=== PATIENT | female | born 1970 | race Hispanic/Latino ===

== ENCOUNTER 2016-07-12 21:26 | Emergency (ER) | payer OTHER ==
[~2016-07-12] VITALS: Ht 154.9 cm; Wt 74.8 kg
[~2016-07-12 21:26] MED LIST: AMOXIL 875 MG875 MG PO; BENZONATATE200 MG PO; LOMOTIL 0.025 M1 TAB PO; VICODIN5-300 PO; ZOFRAN ODT4 MG PO
[2016-07-12 21:58] LABS: ABSOLUTE BASOPHIL COUNT 0.1 /CUMM (0.0-0.2); ABSOLUTE EOSINOPHIL COUNT 0.3 /CUMM (0.0-0.7); ABSOLUTE GRANULOCYTE CT 8.3 /CUMM (1.4-6.5); ABSOLUTE MONOCYTE COUNT 0.8 /CUMM (0.10-0.60); BASOPHIL % 0.5 % (0.0-2.0); EOSINOPHIL % 2.4 % (0-5); GRANULOCYTE % 66.8 % (42.2-75.2); HEMATOCRIT 40.6 % (37-47); MEAN CORPUSCULAR HGB CONC 32.8 G/DL (33.0-37.0); MEAN CORPUSCULAR VOLUME 82.3 FL (81.0-99.0); MEAN PLATELET VOLUME 8.3 FL (7.4-10.4); PLATELET COUNT 272 /CUMM (130-400); RBC DISTRIBUTION WIDTH 13.6 % (11.5-14.5); RED BLOOD CELL CT 4.94 /CUMM (4.20-5.40); WHITE BLOOD CELL COUNT 12.4 /CUMM (4.8-10.8)
--- NOTE | 2016-07-12 22:14 | ED GI/GU/ABDOMINAL COMPLAINT ---
History of Present Illness General Chief Complaint: Abdominal Pain/Flank Pain Stated Complaint: R SIDED SEVERE ABD PAIN X 2HRS Source: patient Exam Limitations: no limitations Vital Signs & Intake/Output Vital Signs & Intake/Output Vital Signs Date Time Temp Pulse Resp B/P Pulse O2 O2 Flow FiO2 Ox Delivery Rate 07/13 0114 88 22 142/78 98 07/12 2339 97 18 154/71 100 Room Air 07/12 2143 96.0 99 18 158/90 99 Room Air ED Intake and Output 07/13 0000 07/12 1200 Intake Total 1000 Output Total Balance 1000 Intake, IV 1000 Patient 165 lb Weight Allergies Coded Allergies: morphine (RASH 07/13/16) Reconcile Medications Cyclobenzaprine HCl (Unknown Strength) TABLET (Unknown Dose) PO DAILY BACK PAIN (Reported) Ibuprofen 800 MG TABLET 1 TAB PO TID PAIN Meloxicam (Unknown Strength) TABLET (Unknown Dose) PO DAILY BACK PAIN ( Reported) Oxycodone HCl/Acetaminophen (Percocet 5-325 MG Tablet) 5 MG-325 MG TABLET 1 TAB PO BID PAIN Tamsulosin HCl (Flomax) 0.4 MG CAP.ER.24H 1 CAP PO DAILY KIDNEY STONE Triage Note: PT TO TRIAGE WITH C/O RLQ ABD PAIN 10/10 STARTED AT 7PM, NAUSEA, VOMITING x2, DENIES DIARRHEA. PT AFEBRILE, VSS. PT RESTLESS IN TRIAGE, CAN'T SIT DOWN DUE TO SEVERE PAIN. Triage Nurses Notes Reviewed? yes ? N Is pt currently ? No Onset: Abrupt Duration: hour(s):, constant, continues in ED Timing: recent history Quality/Severity: moderate, sharpness, severe Location: right lower quadrant Radiation: no radiation No Modifying Factors: none HPI: 46-year-old female comes into emergency room with complaints of right-sided abdominal pain. Symptoms been going on since later tonight. Sudden onset. Decreased appetite. Nausea. Nothing seems to make the symptoms better or worse. Denies any prior history of this. Denies any other associated symptoms. (KIMBERLY VILLA) Past History Travel History Traveled to [place] past 21 day No Medical History Any Pertinent Medical History? see below for history Musculoskeletal: L5 FUSION Surgical History Surgical History: non-contributory Psychosocial History What is your primary language Albanian Tobacco Use: Never used Family History Hx Contributory? No (KIMBERLY VILLA) Review of Systems Review of Systems Constitutional: Reports: see HPI. EENTM: Reports: no symptoms. Respiratory: Reports: no symptoms. Cardiovascular: Reports: no symptoms. GI: Reports: see HPI. Genitourinary: Reports: no symptoms. Musculoskeletal: Reports: no symptoms. Skin: Reports: no symptoms. Neurological/Psychological: Reports: no symptoms. Hematologic/Endocrine: Reports: no symptoms. Immunologic/Allergic: Reports: no symptoms. All Other Systems: Reviewed and Negative (KIMBERLY VILLA) Physical Exam Physical Exam General Appearance: well developed/nourished, no apparent distress, alert Head: atraumatic, normal appearance Eyes: Bilateral: normal appearance, EOMI. Ears, Nose, Throat, Mouth: hearing grossly normal, moist mucous membrane Neck: normal inspection, full range of motion Respiratory: normal breath sounds, no respiratory distress Cardiovascular: regular rate/rhythm Gastrointestinal: soft, non-tender Back: normal inspection Extremities: normal range of motion Neurologic/Psych: awake, alert, oriented x 3, normal gait, normal mood/affect Skin: intact, normal color Core Measures ACS in differential dx? No Severe Sepsis Present: No Septic Shock Present: No (KIMBERLY VILLA) Progress Differential Diagnosis: appendicitis, biliary colic, bowel obstruction, cholecystitis, diverticulitis, ectopic , gastritis, hepatitis, hernia, ischemic bowel, kidney stone, ovarian cyst, ovarian torsion, pancreatitis, PID/ cervicitis, peptic ulcer, PUD/GERD, perforated viscous, SBO, threatened AB, UTI/ pyelo Plan of Care: Orders Procedure Date/time Status URINALYSIS 07/13 2131 Complete LIPASE 07/13 2131 Complete HEPATIC FUNCTION PANEL 07/13 2131 Complete HUMAN BETA HCG SCREEN 07/13 2131 Complete CBC WITHOUT DIFFERENTIAL 07/13 2131 Complete BASIC METABOLIC PANEL 07/13 2131 Complete AMYLASE 07/13 2131 Complete Laboratory Tests 07/12/162233: Urine Color YEL, Urine Clarity CLEAR, Urine pH 6.0, Ur Specific [place] 1.025, Urine Protein TRACE H, Urine Ketones TRACE H, Urine Nitrite NEG, Urine Bilirubin NEG, Urine Urobilinogen 0.2, Ur Leukocyte Esterase NEG, Ur Microscopic SEDIMENT EXAMINED, Urine RBC 25-50 H, Urine WBC 1-3 H, Ur Epithelial Cells MANY H, Urine Bacteria MANY H, Urine Hemoglobin MOD H, Urine Glucose NEG 07/12/162151: Anion Gap 16, Estimated GFR > 60, BUN/Creatinine Ratio 28.9 H, Glucose 118 H, Calcium 10.1, Total Bilirubin 0.3, Direct Bilirubin 0.2, AST 17, ALT 34, Alkaline Phosphatase 79, Total Protein 7.8, Albumin 4.5, Amylase 64, Lipase 94, Total Beta HCG NEGATIVE, CBC w Diff NO MAN DIFF REQ, RBC 4.94, MCV 82.3, MCH 27.0, RDW 13.6, MPV 8.3, Gran % 66.8, Lymphocytes % 24.0, Monocytes % 6.3, Eosinophils % 2.4, Basophils % 0.5, Absolute Granulocytes 8.3 H, Absolute Lymphocytes 3.0, Absolute Monocytes 0.8 H, Absolute Eosinophils 0.3, Absolute Basophils 0.1, PUBS MCHC 32.8 L Diagnostic Imaging: Viewed by Me: CT Scan. Discussed w/RAD: CT Scan. Radiology Impression: SERVICE DATE: 07/12/16 EXAM TYPE: CAT - CT ABD & PELVIS W IV CONTRAST EXAMINATION: CT ABDOMEN AND PELVIS WITH CONTRAST CLINICAL INFORMATION: Right lower quadrant pain COMPARISON: None TECHNIQUE: Multidetector volumetric imaging was performed of the abdomen and pelvis before and after the IV administration of 95 mL of Optiray 320 intravenous contrast. Sagittal and coronal reformatted images were obtained on the technologist's workstation. DLP: 397.19 mGy-cm FINDINGS: LUNG BASES: The visualized lung bases are unremarkable. LIVER, GALLBLADDER, AND BILIARY TREE: The liver is normal in size, shape, and attenuation. No focal hepatic lesion or biliary ductal dilatation is present. The gallbladder is unremarkable with no evidence of radiopaque gallstones, gallbladder wall thickening, or obvious pericholecystic inflammatory changes. PANCREAS: Unremarkable. SPLEEN: Unremarkable. ADRENAL GLANDS: Unremarkable. KIDNEYS AND URETERS: There is a 5-6 mm distal right ureter stone, causing moderate 2 severe right sided hydroureteronephrosis and moderate perinephric fat stranding. The nephrogram of the right kidney is lower than the normal left kidney, representing obstructive uropathy. The right ureter distal to this stone is decompressed. The urinary bladder is empty. The left kidney is normal in size and demonstrates normal nephrogram. No left-sided hydronephrosis or hydroureter. No left-sided urinary is found. GASTROINTESTINAL TRACT: The the stomach, duodenum small and large bowel are unremarkable. The appendix is not seen, however there are no inflammatory changes in the expected position of the appendix to suggest acute appendicitis. ABDOMINAL WALL: No significant hernia is appreciated. LYMPH NODES: Normal. VASCULAR: Unremarkable. PELVIC VISCERA: The uterus and adnexa are unremarkable. A dominant right ovarian follicle is present. OSSEOUS STRUCTURES: Postsurgical changes at L5-S1 level with pedicular screws and intervertebral disc spacer noted. IMPRESSION: 1. A 5-6 mm obstructing distal right ureter stone, causing moderate to severe right-sided hydroureteronephrosis and right perinephric stranding. 2. Postsurgical changes at L5-S1 level. DICTATED BY: LUIS MARTÍNEZ MD DATE/TIME DICTATED:07/12/162325 INSURANCE EXAMINER:JAZMINE DATE/TIME TRANSCRIBED:07/12/162325 CONFIDENTIAL, DO NOT COPY WITHOUT APPROPRIATE AUTHORIZATION. Initial ED EKG: none (ERLIN CUETO,KIMBERLY) Departure Departure Disposition: HOME OR SELF CARE Condition: Stable Clinical Impression Primary Impression: Kidney stone on right side Referrals: PATIENT HAS NO PRIMARY CARE DR (PCP/Family) SANDEE OLSON MD Additional Instructions: Take Percocet and ibuprofen and Flomax as prescribed. Call the urologist to follow up tomorrow. Return if any concerns worsening symptoms. Please go over all results of today's visit with your primary care doctor. Contact your primary care doctor to let them know you were here in the emergency room. There may be nonspecific findings which may not be related to your visit today here in the emergency room but may require further evaluation and chronic monitoring by your primary care doctor. If you had a laceration today the chance of foreign body always remains. You should follow-up with your primary care doctor for recheck in 3-5 days for a wound check. If you had an x-ray done there is a chance that a fracture could have been missed on initial read and you should follow-up with your primary care doctor for repeat x-rays if symptoms persist. If your blood pressure was elevated here in the emergency room please have rechecked by her primary care doctor within the next 48 hours by your primary care doctor. If you were prescribed a narcotic here in the emergency room or any type of controlled substances you're not allowed to drive while taking this medication or operate any type of heavy machinery. Narcotics can make you feel lightheaded dizziness nausea and can cause constipation. You may need to picker feeder a stool softener. Thank you for choosing [facility] emergency room. Please return to the emergency room immediately if you have any other concerns worsening of symptoms. Departure Forms: Customer Survey General Discharge Information Comments Pain is well controlled. Patient will follow up with urology. Return if any concerns worsening symptoms. Patient understands and agrees with plan of care. Patient reevaluated multiple times. Patient understands and agrees with plan of care. Patient feels significantly better. (KIMBERLY VILLA) Departure Prescriptions: Current Visit Scripts Oxycodone HCl/Acetaminophen (Percocet 5-325 MG Tablet) 1 TAB PO BID #15 TAB Ibuprofen 1 TAB PO TID #30 TAB Tamsulosin HCl (Flomax) 1 CAP PO DAILY #7 CAP PA/TANK SETTER HELPER Co-Sign Statement Statement: ED Attending supervision documentation- [] I saw and evaluated the patient. I have also reviewed all the pertinent lab results and diagnostic results. I agree with the findings and the plan of care as documented in the PA's/TANK SETTER HELPER's documentation. [X] I have reviewed the ED Record and agree with the PA's/TANK SETTER HELPER's documentation. [] Additions or exceptions (if any) to the PAs/TANK SETTER HELPER's note and plan are summarized below: [] (MIKAEL JEWELL,MOJGAN Whitaker)
[2016-07-12] MEDS ORDERED: MELOXICAM7.5 M1 PO (22:24)
[2016-07-12] MEDS ORDERED: CYCLOBENZAPRINE10 M1 PO (22:26)
--- NOTE | 2016-07-12 23:39 | CT SCAN REPORT ---
EXAMINATION: CT ABDOMEN AND PELVIS WITH CONTRAST CLINICAL INFORMATION: Right lower quadrant pain COMPARISON: None TECHNIQUE: Multidetector volumetric imaging was performed of the abdomen and pelvis before and after the IV administration of 95 mL of Optiray 320 intravenous contrast. Sagittal and coronal reformatted images were obtained on the technologist's workstation. DLP: 397.19 mGy-cm FINDINGS: LUNG BASES: The visualized lung bases are unremarkable. LIVER, GALLBLADDER, AND BILIARY TREE: The liver is normal in size, shape, and attenuation. No focal hepatic lesion or biliary ductal dilatation is present. The gallbladder is unremarkable with no evidence of radiopaque gallstones, gallbladder wall thickening, or obvious pericholecystic inflammatory changes. PANCREAS: Unremarkable. SPLEEN: Unremarkable. ADRENAL GLANDS: Unremarkable. KIDNEYS AND URETERS: There is a 5-6 mm distal right ureter stone, causing moderate 2 severe right sided hydroureteronephrosis and moderate perinephric fat stranding. The nephrogram of the right kidney is lower than the normal left kidney, representing obstructive uropathy. The right ureter distal to this stone is decompressed. The urinary bladder is empty. The left kidney is normal in size and demonstrates normal nephrogram. No left-sided hydronephrosis or hydroureter. No left-sided urinary is found. GASTROINTESTINAL TRACT: The the stomach, duodenum small and large bowel are unremarkable. The appendix is not seen, however there are no inflammatory changes in the expected position of the appendix to suggest acute appendicitis. ABDOMINAL WALL: No significant hernia is appreciated. LYMPH NODES: Normal. VASCULAR: Unremarkable. PELVIC VISCERA: The uterus and adnexa are unremarkable. A dominant right ovarian follicle is present. OSSEOUS STRUCTURES: Postsurgical changes at L5-S1 level with pedicular screws and intervertebral disc spacer noted. IMPRESSION: 1. A 5-6 mm obstructing distal right ureter stone, causing moderate to severe right-sided hydroureteronephrosis and right perinephric stranding. 2. Postsurgical changes at L5-S1 level.
[2016-07-13] MEDS ORDERED: IBUPROFEN800 M1 PO (00:35)
[2016-07-13] MEDS ORDERED: FLOMAX0.4 M1 PO (00:35)
[2016-07-13] MEDS ORDERED: PERCOCET 5-3251 EACH PO (00:35)
[2016-07-13 01:14] VITALS: BP 142/78
--- NOTE | 2016-07-13 14:43 | Cons- Urology ---
General Information and HPI Consulting Request Date of Consult: 07/12/16 Requested By: do olga murphy-emergency room Reason for Consult: severe right renal colic for 2 days-sudden onset Source of Information: patient, old records Exam Limitations: no limitations History of Present Illness: 46 yr old with back problems noted severe right colic for 2 days/ seen in er and ct with hydro and right 6mm UVJ stone. no fever, no chill, no n/v and tolerated po pain meds. will try to pass stone but scheduled for future ESWL if not passed or symptoms worse. Allergies/Medications Allergies: Coded Allergies: morphine (RASH 07/13/16) Home Med List: Cyclobenzaprine HCl (Unknown Strength) TABLET (Unknown Dose) PO DAILY BACK PAIN (Reported) Ibuprofen 800 MG TABLET 1 TAB PO TID PAIN Meloxicam (Unknown Strength) TABLET (Unknown Dose) PO DAILY BACK PAIN ( Reported) Oxycodone HCl/Acetaminophen (Percocet 5-325 MG Tablet) 5 MG-325 MG TABLET 1 TAB PO BID PAIN Tamsulosin HCl (Flomax) 0.4 MG CAP.ER.24H 1 CAP PO DAILY KIDNEY STONE Current Medications: Current Medications Sig/Osvaldo Start time Last Medication Dose Route Stop Time Status Admin Diphenhydramine HCl 25 MG ONCE ONE 07/12 2300 DC 07/12 IV 07/12 2301 2253 Diphenhydramine HCl 0 .STK-MED ONE 07/12 2253 DC .ROUTE Hydromorphone HCl 0 .STK-MED ONE 07/12 2352 DC .ROUTE Hydromorphone HCl 1 MG ONCE ONE 07/12 2345 DC 07/12 IV 07/12 2346 2359 Ketorolac 0 .STK-MED ONE 07/13 0003 DC Tromethamine .ROUTE Ketorolac 30 MG ONCE ONE 07/12 2345 DC 07/13 Tromethamine IV 07/12 2346 0002 Morphine Sulfate 4 MG ONCE ONE 07/12 2245 DC 07/12 IV 07/12 2245 223 Morphine Sulfate 0 .STK-MED ONE 07/12 223 DC .ROUTE Ondansetron HCl 0 .STK-MED ONE 07/12 2250 DC .ROUTE Ondansetron HCl 4 MG ONCE ONE 07/12 2245 DC 07/12 IV 07/12 2246 225 Sodium Chloride 1,000 ML BOLUS ONE 07/13 2345 DCD 07/13 IV 07/14 0044 0002 Sodium Chloride 1,000 ML BOLUS ONE 07/12 2245 DC 07/12 IV 07/12 2344 2253 Past History Medical History Blood Transfusion Hx: No Musculoskeletal: L5 FUSION Surgical History Pertinent Surgical History: non-contributory Employment History Retired? no Review of Systems Review of Systems Constitutional: Reports: see HPI. EENTM: Denies: no symptoms. Cardiovascular: Denies: no symptoms. Respiratory: Denies: no symptoms. GI: Reports: abdominal pain, bloating, distention. Genitourinary: Denies: no symptoms. Musculoskeletal: Reports: muscle pain, muscle stiffness. Skin: Denies: no symptoms. Exam & Diagnostic Data Vital Signs and I&O Vital Signs Date Time Temp Pulse Resp B/P Pulse O2 O2 Flow FiO2 Ox Delivery Rate 07/13 0114 88 22 142/78 98 07/12 2339 97 18 154/71 100 Room Air 07/12 2143 96.0 99 18 158/90 99 Room Air Intake & Output 07/13 1600 07/13 0800 07/13 0000 07/12 1600 07/12 0800 07/12 0000 Intake Total 1000 Output Total Balance 1000 Intake, IV 1000 Patient 165 lb Weight Physical Exam General Appearance: well developed/nourished, mild distress Head: atraumatic Eyes: Bilateral: normal appearance. Respiratory: normal breath sounds Cardiovascular: regular rate/rhythm Gastrointestinal: normal bowel sounds Back: CVA tenderness (R) Extremities: normal inspection Skin: intact, normal color, warm/dry Last 24 Hours of Labs: Laboratory Tests 07/12 07/12 2234 2152 Chemistry Sodium (137 - 145 mmol/L) 140 Potassium (3.5 - 5.1 mmol/L) 4.0 Chloride (98 - 107 mmol/L) 100 Carbon Dioxide (22 - 30 mmol/L) 24 Anion Gap (5 - 16) 16 BUN (7 - 17 mg/dL) 26 H Creatinine (0.5 - 1.0 mg/dL) 0.9 Estimated GFR (>60 ml/min) > 60 BUN/Creatinine Ratio (7 - 25 %) 28.9 H Glucose (65 - 99 mg/dL) 118 H Calcium (8.4 - 10.2 mg/dL) 10.1 Total Bilirubin (0.2 - 1.3 mg/dL) 0.3 Direct Bilirubin (< 0.4 mg/dL) 0.2 AST (14 - 36 U/L) 17 ALT (9 - 52 U/L) 34 Alkaline Phosphatase (<127 U/L) 79 Total Protein (6.3 - 8.2 g/dL) 7.8 Albumin (3.5 - 5.0 g/dL) 4.5 Amylase (30 - 110 U/L) 64 Lipase (23 - 300 U/L) 94 Total Beta HCG (NEGATIVE) NEGATIVE Hematology CBC w Diff NO MAN DIFF REQ WBC (4.8 - 10.8 /CUMM) 12.4 H RBC (4.20 - 5.40 /CUMM) 4.94 Hgb (12.0 - 16.0 G/DL) 13.4 Hct (37 - 47 %) 40.6 MCV (81.0 - 99.0 FL) 82.3 MCH (27.0 - 31.0 PG) 27.0 RDW (11.5 - 14.5 %) 13.6 Plt Count (130 - 400 /CUMM) 272 MPV (7.4 - 10.4 FL) 8.3 Gran % (42.2 - 75.2 %) 66.8 Lymphocytes % (20.5 - 51.1 %) 24.0 Monocytes % (1.7 - 9.3 %) 6.3 Eosinophils % (0 - 5 %) 2.4 Basophils % (0.0 - 2.0 %) 0.5 Absolute Granulocytes (1.4 - 6.5 /CUMM) 8.3 H Absolute Lymphocytes (1.2 - 3.4 /CUMM) 3.0 Absolute Monocytes (0.10 - 0.60 /CUMM) 0.8 H Absolute Eosinophils (0.0 - 0.7 /CUMM) 0.3 Absolute Basophils (0.0 - 0.2 /CUMM) 0.1 PUBS MCHC (33.0 - 37.0 G/DL) 32.8 L Urines Urine Color (YEL,AMB,STR) YEL Urine Clarity (CLEAR) CLEAR Urine pH (5.0 - 8.0) 6.0 Ur Specific [place] (1.001 - 1.035) 1.025 Urine Protein (NEG,<30 MG/DL) TRACE H Urine Ketones (NEG) TRACE H Urine Nitrite (NEG) NEG Urine Bilirubin (NEG) NEG Urine Urobilinogen (0.1 - 1.0 EU/dl) 0.2 Ur Leukocyte Esterase (NEG) NEG Ur Microscopic SEDIMENT EXAMINED Urine RBC (0 - 5 /HPF) 25-50 H Urine WBC (0 - 2 /HPF) 1-3 H Ur Epithelial Cells (NONE,FEW) MANY H Urine Bacteria (NEG/NONE) MANY H Urine Hemoglobin (NEG) MOD H Urine Glucose (N MG/DL) NEG Imaging Results: PATIENT: RONALD CHANEY PRESENT AGE: 46 PATIENT ACCOUNT NO: [id number] : 70 LOCATION: [facility] ORDERING PHYSICIAN: KIMBERLY CUETO SERVICE DATE: 07/12/16 EXAM TYPE: CAT - CT ABD & PELVIS W IV CONTRAST EXAMINATION: CT ABDOMEN AND PELVIS WITH CONTRAST CLINICAL INFORMATION: Right lower quadrant pain COMPARISON: None TECHNIQUE: Multidetector volumetric imaging was performed of the abdomen and pelvis before and after the IV administration of 95 mL of Optiray 320 intravenous contrast. Sagittal and coronal reformatted images were obtained on the technologist's workstation. DLP: 397.19 mGy-cm FINDINGS: LUNG BASES: The visualized lung bases are unremarkable. LIVER, GALLBLADDER, AND BILIARY TREE: The liver is normal in size, shape, and attenuation. No focal hepatic lesion or biliary ductal dilatation is present. The gallbladder is unremarkable with no evidence of radiopaque gallstones, gallbladder wall thickening, or obvious pericholecystic inflammatory changes. PANCREAS: Unremarkable. SPLEEN: Unremarkable. ADRENAL GLANDS: Unremarkable. KIDNEYS AND URETERS: There is a 5-6 mm distal right ureter stone, causing moderate 2 severe right sided hydroureteronephrosis and moderate perinephric fat stranding. The nephrogram of the right kidney is lower than the normal left kidney, representing obstructive uropathy. The right ureter distal to this stone is decompressed. The urinary bladder is empty. The left kidney is normal in size and demonstrates normal nephrogram. No left-sided hydronephrosis or hydroureter. No left-sided urinary is found. GASTROINTESTINAL TRACT: The the stomach, duodenum small and large bowel are unremarkable. The appendix is not seen, however there are no inflammatory changes in the expected position of the appendix to suggest acute appendicitis. ABDOMINAL WALL: No significant hernia is appreciated. LYMPH NODES: Normal. VASCULAR: Unremarkable. PELVIC VISCERA: The uterus and adnexa are unremarkable. A dominant right ovarian follicle is present. OSSEOUS STRUCTURES: Postsurgical changes at L5-S1 level with pedicular screws and intervertebral disc spacer noted. IMPRESSION: 1. A 5-6 mm obstructing distal right ureter stone, causing moderate to severe right-sided hydroureteronephrosis and right perinephric stranding. 2. Postsurgical changes at L5-S1 level. Assessment/Plan Assessment/Plan severe right coli: dc on meds for now-will schedule for eswl if not passed/worse over next few weeks. Copies To: SANDEE OLSON MD Consult Acknowledgment - Thank you for your consult request. Attending MD Review Statement Attending Statement Attending MD Statement: examined this patient, discuss w/resident/PA/ACID PURIFICATION EQUIPMENT OPERATOR Attending Assessment/Plan: pt with 6mm rigth UVJ stone: will dc home on meds totry and pass on own. f/u for ESWL in 2 weeks if not passed=sooner if symptoms worse.
== END 2016-07-13 01:15 ==
LOC: ERH 21:26
PROVIDERS: Pediatrics
DX: N20.0 Calculus of kidney (principal)
CPT/HCPCS: 74177; 81001; 96361; 96374; 96375; J1200; J1885; J2405

== ENCOUNTER → 2016-07-13 | Day surgery (SDC) | payer OTHER ==
[~2016-07-13] VITALS: Ht 154.9 cm; Wt 74.8 kg
[~2016-07-13] MED LIST changes: +CIPROFLOXACIN500 M2 PO; +CYCLOBENZAPRINE10 M1 PO; +FLOMAX0.4 M1 PO; +IBUPROFEN800 M1 PO; +MELOXICAM7.5 M1 PO; +PERCOCET 5-3251 EACH PO
--- NOTE | 2016-07-14 07:52 | Operative Report ---
Operative/Inv Procedure Report Surgery Date: 07/13/16 Name of Procedure: CYSTOSCOPY: RIGHT RETROGRADE PYELOGRAM. RIGHT STENT PLACEMENT. FLUOROSCOPY. Pre-Operative Diagnosis: RIGHT 6MM OBSTRUCTING URETER STONE WITH HYDRO., AND COLIC Post-Operative Diagnosis: SAME Estimated Blood Loss: scant Surgeon/Patient Intake Coordinator: SANDEE OLSON MD Anesthesia: moderate sedation Drains: NONE Specimens: NONE Complications: NONE Operative/Procedure Note Note: The patient was taken to the operating room and placed on the OR table in supine position. Timeout was performed, with the patient awake, in order to confirm identity, procedure, antibiotics, anesthesia, and other pertinent information. After adequate anesthesia and antibiotics, the patient was placed in lithotomy stirrups draped and prepped in the usual surgical fashion. A 22 Occitan cystoscope sheath with 30 angle lens was inserted into the urethra without difficulty. Upon entering the bladder, the bladder was noted to be free of tumor, free of stone, with clear reflux from the left ureteral orifice, and no efflux from the right. Under direct visualization the right ureter orifice was intubated with a 5 Occitan open-ended ureter catheter. A retrograde pyelogram, with fluoroscopy was performed. The distal ureter filling defect consistent with stone was clearly visible, with proximal hydroureter, and hydronephrosis. The open-ended stent was then removed, followed by insertion of a 0.035 Glidewire into the right ureteral orifice. The Glidewire was advanced into the right renal pelvis, bypassing the stone, with good placement confirmed by fluoroscopy. Over the Glidewire, a 6 x 22 Bard inlay ureteral double-J stent was advanced. With the proximal coil in the right renal pelvis, and the distal coil in the bladder, the Glidewire was removed. The stent remained in proper place, both cystoscopically, and fluoroscopically. The bladder was then drained , and the cystoscope was removed. The patient tolerated procedure well and will follow-up as outpatient for further plan/procedures. Findings: 6MM RIGHT DISTAL URETER STONE CLEARLY VISIBLE ON C-ARM. 6X22 INSERTED WITHOUT SIGNIFICANT DIFFICULTY. RIGHT HYDRO. EVIDENT ON RETROGRADE. Discharge Disposition: Same Day Admissions Additional Comments: F/U FOR RIGHT ESWL AND STENT REMOVAL IN NEAR FUTURE CC: SANDEE OLSON MD
--- NOTE | 2016-07-14 08:46 | RADIOLOGY REPORT ---
EXAMINATION: XR ABDOMEN CLINICAL INDICATION: Right ureteral calculus and hydroureteronephrosis. COMPARISON: CT of abdomen pelvis from 07/12/2016. TECHNIQUE: Fluoroscopic imaging assistance was provided to the operating room. Fluoroscopy time: 58.8 seconds. Dose: 1.31 rad. Number of saved images: 3. FINDINGS: A few fluoroscopic images of the abdomen/pelvis are saved from the intraoperative urologic procedures performed by Dr. Cody. A right retrograde ureterography examination was performed and right ureteral stent deployed. Please refer to the operative report regarding the specifics of the intraoperative findings and interventions performed. IMPRESSION: Fluoroscopic imaging assistance was provided to the operating room.
== END ==
LOC: STS 07:00
DX: N13.2 Hydronephrosis with renal and ureteral calculous obstruction (principal); K21.9 Gastro-esophageal reflux disease without esophagitis
CPT/HCPCS: 36415; 74000; 81025; C2617; J0131; J2250; J2405; J3010

== ENCOUNTER → 2016-07-16 | Day surgery (SDC) | payer OTHER ==
[~2016-07-16] VITALS: Ht 154.9 cm; Wt 74.8 kg
--- NOTE | 2016-07-16 20:56 | Operative Report ---
Operative/Inv Procedure Report Surgery Date: 07/16/16 Name of Procedure: Right ureter stone ESWL. Cystoscopy right stent removal with fluoroscopy. Pre-Operative Diagnosis: Right ureter stone and right ureter stent intolerance. Post-Operative Diagnosis: Same Estimated Blood Loss: scant Surgeon/Assembly Line Brazer: SANDEE OLSON MD Anesthesia: moderate sedation Specimens: Right stent Complications: None Condition: Improved Operative/Procedure Note Note: The patient was taken to the operating room and placed on the ESWL table in supine position. Time out was performed, with the patient awake, to confirm identity, procedure, laterality, and other pertinent barbara-operative information. After adequate anesthesia, the patient was positioned so that the right flank was placed over the ESWL table cut-out, and overlying the dome of the shockwave generator. C-arm fluroscopy, as well as renal US was used to locate the stone, and evaluate the right kidney. The stone was faintly visible on fluroloscopy at the right mid-ureter. Renal US confirmed mild hydronephrosis with no additional stone seen in the right kidney. The right ureter stone was approximate 7 mm in size, and nearly faintly visible with fluoroscopy. Using the C-Arm fluoroscopy in an A-P, and Oblique view, the position of the ureter stone was optimized at the center of the ESWL crosshairs. At this point, E.S.W.L. was initiated at low power levels x 200 shocks. After noting the patient's tolerance to the shockwaves, the shockwave power level was quickly maximized. At the end of the procedure, the composition of the stone had changed significantly indicating the pulverization of the ureter stone. A total of 3000 shockwaves were delivered to the stone in order to achieve adequate lithotrypsy. Once the ESWL concluded, the pt. was repositioned in frog-legged position, draped and prepped in the usual surgical fashion. A 22 Kiswahili cystoscope sheath with a 30 angle lens was then inserted into the bladder. The bladder was thoroughly and systematically surveyed revealing no tumor no stone. The right orifice was intubated with a double-J stent. The stent was grasped with an alligator forcep, and the cystoscope along with entire stent was removed without difficulty. The patient tolerated the procedures well, was awakened, and taken to recovery in satisfactory condition via stretcher. The pt will be dischared to home with pain meds, antibiotics, diet orders, and intructions to catch fragments with straining the urine. The patient is to have follow-up renal ultrasound and KUB within 1-2 weeks and f/u in the office after discharge. Findings: 7 mm distal ureter stone shattered at 3000 shockwaves. Discharge Disposition: PACU CC: SANDEE OLSON MD
== END ==
LOC: STS 07:00
DX: N13.2 Hydronephrosis with renal and ureteral calculous obstruction (principal); T83.89XA Other specified complication of genitourinary prosthetic devices, implants and grafts, initial encounter
CPT/HCPCS: 81025

== ENCOUNTER 2016-07-17 23:17 | Observation (INO) | payer BC ==
[~2016-07-17] VITALS: Ht 154.9 cm; Wt 73.5 kg
[~2016-07-17 23:17] MED LIST changes: -CIPROFLOXACIN500 M2 PO
--- NOTE | 2016-07-18 00:05 | NUR ---
PT HAD STENT REMOVED AND STONE "BLASTED" ON WEDNESDAY RT SIDE C/O INCREASED PAIN,VOMITING,HEMATURIA
--- NOTE | 2016-07-18 00:33 | ED GENERAL ADULT ---
History of Present Illness General Chief Complaint: General Adult Stated Complaint: SENT REMOVAL SURG YEST, VOMTING, PAINFUL Source: patient Exam Limitations: no limitations Vital Signs & Intake/Output Vital Signs & Intake/Output Vital Signs Date Time Temp Pulse Resp B/P B/P Pulse O2 O2 Flow FiO2 Mean Ox Delivery Rate 07/18 0552 97.6 72 20 122/80 99 07/18 0434 80 18 136/78 100 Room Air 07/18 0344 80 16 133/75 99 Room Air 07/18 0006 98.1 101 18 133/80 99 Room Air Allergies Coded Allergies: morphine (RASH 07/13/16) Reconcile Medications Ciprofloxacin HCl 500 MG TABLET 1 TAB PO BID INFECTION (Reported) Cyclobenzaprine HCl (Unknown Strength) TABLET (Unknown Dose) PO DAILY BACK PAIN (Reported) Ibuprofen 800 MG TABLET 1 TAB PO TID PAIN Meloxicam (Unknown Strength) TABLET (Unknown Dose) PO DAILY BACK PAIN ( Reported) Oxycodone HCl/Acetaminophen (Percocet 5-325 MG Tablet) 5 MG-325 MG TABLET 1 TAB PO TID PRN PAIN (Reported) Tamsulosin HCl (Flomax) 0.4 MG CAP.ER.24H 1 CAP PO DAILY URINE (Reported) Triage Note: PT HAD STENT REMOVED AND STONE "BLASTED" ON WEDNESDAY RT SIDE C/O INCREASED PAIN,VOMITING,HEMATURIA Triage Nurses Notes Reviewed? yes Onset: Abrupt Duration: hour(s): Timing: recent history HPI: 07/18/16 12:38 AM 46-year-old female presents to the emergency department for severe right sided abdominal and flank pain. The patient is status post lithotripsy and ureter stent removal by Dr. Cody earlier today. Since that time she's had multiple episodes of vomiting and severe intractable right sided pain. The onset of the symptoms were abrupt, the duration has been just today, the severity is significant; as her symptoms required to come to the emergency department for care. On physical exam she does have right-sided CVA tenderness and some right lower quadrant abdominal tenderness no rebound or guarding. She denies any possibility of . Past History Travel History Traveled to [place] past 21 day No Medical History Any Pertinent Medical History? see below for history Neurological: NONE EENT: NONE Cardiovascular: NONE Respiratory: NONE Gastrointestinal: NONE Hepatic: NONE Renal: nephrolithiasis Musculoskeletal: L5 FUSION Psychiatric: NONE Endocrine: NONE Blood Disorders: NONE Cancer(s): NONE Surgical History Surgical History: s/p stent removal Psychosocial History What is your primary language Amharic Tobacco Use: Never used Family History Hx Contributory? No Review of Systems Review of Systems Constitutional: Denies: fever. EENTM: Denies: visual changes. Respiratory: Reports: no symptoms. Cardiovascular: Reports: no symptoms. GI: Reports: see HPI. Genitourinary: Reports: see HPI. Musculoskeletal: Reports: no symptoms. Skin: Reports: no symptoms. Neurological/Psychological: Reports: no symptoms. Hematologic/Endocrine: Reports: no symptoms. Immunologic/Allergic: Reports: no symptoms. Physical Exam Physical Exam General Appearance: alert, awake, anxious, severe distress Head: atraumatic, normal appearance Eyes: Bilateral: normal appearance, PERRL, EOMI. Ears, Nose, Throat: normal pharynx, normal ENT inspection Neck: normal inspection, supple Respiratory: normal breath sounds, chest non-tender, no respiratory distress Cardiovascular: regular rate/rhythm Peripheral Pulses: 4+ radial (R), 4+ radial (L) Gastrointestinal: soft, tenderness, right lower quadrant and right flank Back: normal range of motion Extremities: normal inspection, normal range of motion Neurologic/Psych: no motor/sensory deficits, awake, alert, oriented x 3 Skin: intact, normal color, warm/dry Comments: patient with severe tenderess, right cva Core Measures ACS in differential dx? No CVA/TIA Diagnosis: No Severe Sepsis Present: No Septic Shock Present: No Progress Differential Diagnoses I considered the following diagnoses in my evaluation of the patient: [Renal colic, ureteral spasm secondary to stent removal, pyelonephritis] Plan of Care: Orders Procedure Date/time Status CBC WITHOUT DIFFERENTIAL 07/19 599 Active BASIC ELECTROLYTES PLUS BUN&CR 07/19 599 Active Regular Diet 07/18 B Active Vital Signs 07/18 634 Active Teach/Educate 07/18 634 Active Pain Treatment and Response 07/18 634 Active Nutritional Intake, Monitor 07/18 634 Active Isolation 07/18 634 Active Intake & Output 07/18 634 Active Patient Care Conference 07/18 634 Active Activity/Ambulation 07/18 634 Active Patient Data 07/[address] in observation 07/19 431 Active Vital Signs 07/18 043 Active Code Status 07/19 431 Active URINALYSIS 07/18 0041 Complete COMPREHENSIVE METABOLIC PANEL 07/18 40 Complete CBC WITHOUT DIFFERENTIAL 07/[address] in observation 07/18 UNK Active VTE Mechanical Prophylaxis 07/18 UNK Active Vital Signs 07/18 UNK Complete Intake & Output 07/18 UNK Active Current Medications Sig/Osvaldo Start time Last Medication Dose Stop Time Status Admin Heparin Sodium 5,000 UNIT Q8 07/18 1400 AC (Porcine) Tamsulosin HCl 0.8 MG DAILY 07/18 1000 AC (Flomax) Acetaminophen 650 MG Q4-6 PRN PRN 07/18 444 AC (Tylenol) Diphenhydramine HCl 50 MG Q4-6 PRN PRN 07/18 444 AC (Benadryl) Hydromorphone HCl 1 MG Q2-3 HRS NEEDED.. 07/18 444 AC (Dilaudid) Ketorolac 15 MG Q8P PRN 07/18 444 AC 07/18 Tromethamine 0700 (Toradol) Oxycodone/ 1 TAB Q4-6 PRN PRN 07/18 444 AC Acetaminophen (Percocet) Oxycodone/ 2 TAB Q4-6 PRN PRN 07/18 444 AC Acetaminophen (Percocet) Sodium Chloride 1,000 ML Q6H 07/18 444 AC 07/18 (Normal Saline 0.9%) 0514 Laboratory Tests 07/18/16 0220: Urinalysis LIGHT H, Urine Color STRAW, Urine Clarity CLEAR, Urine pH 8.0, Ur Specific [place] 1.015, Urine Protein NEG, Urine Ketones NEG, Urine Nitrite NEG, Urine Bilirubin NEG, Urine Urobilinogen 0.2, Ur Leukocyte Esterase NEG, Ur Microscopic SEDIMENT EXAMINED, Urine RBC 15-25 H, Urine WBC 1-3 H, Ur Epithelial Cells FEW, Urine Bacteria RARE H, Urine Hemoglobin LARGE H, Urine Glucose NEG 07/18/16 0050: Anion Gap 13, Estimated GFR 44 L, BUN/Creatinine Ratio 16.9, Glucose 104 H, Calcium 9.0, Total Bilirubin 0.8, AST 18, ALT 23, Alkaline Phosphatase 78, Total Protein 7.2, Albumin 4.2, Globulin 3.0, Albumin/Globulin Ratio 1.4, CBC w Diff MAN DIFF ORDERED, RBC 4.87, MCV 81.0, MCH 27.8, RDW 13.0, MPV 8.4, Gran % 83.0 H, Lymphocytes % 9.9 L, Monocytes % 5.9, Eosinophils % 1.0, Basophils % 0.2, Absolute Granulocytes 13.4 H, Segmented Neutrophils 88 H, Absolute Lymphocytes 1.6, Lymphocytes 8 L, Monocytes 4, Absolute Monocytes 0.9 H, Absolute Eosinophils 0.2, Absolute Basophils 0, Platelet Estimate ADEQUATE, Normocytic RBCs VERIFIED, Normochromic RBCs VERIFIED, PUBS MCHC 34.3 Initial ED EKG: none Departure Departure Disposition: STILL A PATIENT Condition: Stable Clinical Impression Primary Impression: Renal colic Referrals: PATIENT HAS NO PRIMARY CARE DR (PCP/Family) Departure Forms: Customer Survey General Discharge Information Comments 07/18/16 The patient states that she gets itching from morphine but can tolerate Percocet. PATIENT: RONALD CHANEY PRESENT AGE: 46 PATIENT ACCOUNT NO: [id number] : 70 LOCATION: [facility] ORDERING PHYSICIAN: MADHU GUTIERREZ DO SERVICE DATE: 07/18/16 EXAM TYPE: CAT - CT ABD & PELVIS W/O IV CONTRAS EXAMINATION: CT ABDOMEN AND PELVIS WITHOUT CONTRAST CLINICAL INFORMATION: Severe right flank pain status post lithotripsy. COMPARISON: CT scan of abdomen and pelvis 07/12/2016. TECHNIQUE: Multidetector volumetric imaging was performed from the superior aspect of the liver through the pubic symphysis. Sagittal and coronal reformatted images were obtained on the technologist's workstation. DLP: 407.43 mGy-cm FINDINGS: LUNG BASES: Lung bases are clear. There is no pleural or pericardial effusion. LIVER, GALLBLADDER, AND BILIARY TREE: The unenhanced liver demonstrates homogeneous attenuation and there is no evidence of a discrete hepatic parenchymal mass. The gallbladder is normal. No abnormal intrahepatic or extrahepatic biliary ductal dilatation. PANCREAS: Unremarkable. SPLEEN: Unremarkable. ADRENAL GLANDS: Unremarkable. KIDNEYS AND URETERS: There is moderate to severe right hydroureteronephrosis related to an obstructive 5 mm calculus located within the distal right ureter at the ureterovesicular junction. The right kidney is asymmetrically enlarged and there is stranding within the perinephric fat. No nonobstructing calculi are visualized within the right or left kidney. There is no worrisome mass or calcification along the expected course of the normal left ureter. BLADDER: Unremarkable. GASTROINTESTINAL TRACT: The stomach and small bowel are normal. There is no free intraperitoneal air or fluid. The appendix is not definitively visualized. No worrisome inflammatory changes are visualized at the base of the cecum to suggest acute appendicitis. ABDOMINAL WALL: No significant hernia is appreciated. LYMPH NODES: No pathologically enlarged mesenteric or retroperitoneal lymph nodes. VASCULAR: The unenhanced abdominal aorta and inferior vena cava are unremarkable. PELVIC VISCERA: There is an anteverted uterus. No worrisome adnexal mass. OSSEOUS STRUCTURES: There are chronic changes of a decompressive L5 laminectomy and there is a spinal fusion construct comprised of transpedicular screws extending from L5 to S1. Hardware is grossly intact and there is no evidence of suggest loosening or infection. No worrisome lytic or blastic osseous lesion within the [id number] of this examination. IMPRESSION: There is moderate to severe right hydroureteronephrosis related to an obstructive 5 mm calculus within the distal right ureter at the ureterovesicular junction. DICTATED BY: KAMERON TIWARI MD DATE/TIME DICTATED:07/18/16355 DEMURRAGE CLERK:JAZMINE DATE/TIME TRANSCRIBED:07/18/16355 CONFIDENTIAL, DO NOT COPY WITHOUT APPROPRIATE AUTHORIZATION. <Electronically signed in Other Vendor System> SIGNED BY: KAMERON TIWARI MD 07/18 0406 The patient was treated with multiple doses of IV fluids. IV Dilaudid. IV Zofran. She continued to have severe pain. She was placed in observation under the urology service for further evaluation and care. Observation Note Spoke With: ANURADHA FENG MD Physician Advisor Notified: MADHU GUTIERREZ DO Place Patient In: Non-ED OBS Care Area Rationale for Observation: My rational for observation is as follows [the patient has ongoing pain requiring IV narcotics and IV antiemetics, urology consultation]. Critical Care Note Critical Care Note Critical Care Time: 30-74 min
--- NOTE | 2016-07-18 01:07 | NUR ---
EVALUATED BY DR MATT MEJIA ESTABLISHED N/S 1 L WIDE OPEN MEDICATED WITH ZOFRAN AND DILAUDID
[2016-07-18 01:08] LABS: ABSOLUTE BASOPHIL COUNT 0 /CUMM (0.0-0.2); ABSOLUTE EOSINOPHIL COUNT 0.2 /CUMM (0.0-0.7); ABSOLUTE GRANULOCYTE CT 13.4 /CUMM (1.4-6.5); ABSOLUTE LYMPH COUNT 1.6 /CUMM (1.2-3.4); ABSOLUTE MONOCYTE COUNT 0.9 /CUMM (0.10-0.60); BASOPHIL % 0.2 % (0.0-2.0); HEMATOCRIT 39.4 % (37-47); MEAN CORPUSCULAR HGB 27.8 PG (27.0-31.0); MEAN CORPUSCULAR HGB CONC 34.3 G/DL (33.0-37.0); MEAN PLATELET VOLUME 8.4 FL (7.4-10.4); PLATELET COUNT 268 /CUMM (130-400); RED BLOOD CELL CT 4.87 /CUMM (4.20-5.40); WHITE BLOOD CELL COUNT 16.1 /CUMM (4.8-10.8)
--- NOTE | 2016-07-18 01:52 | NUR ---
APPEARS MORE COMF.
--- NOTE | 2016-07-18 02:23 | NUR ---
PT REMAINS UNCOMF AMBULATORY TO BR, PT HAS MENSES THEN VOMITED AFTER OBTAINING URINE SPEC. MED WITH 1 MG DI;LAUDID UPON RETURN TO ROOM.
--- NOTE | 2016-07-18 03:04 | NUR ---
PT MEDICATED WITH 50MG BENADRYL FOR ITCHINESS PER EMAR
--- NOTE | 2016-07-18 03:21 | NUR ---
to ct via stretcher.
[2016-07-18] MEDS ORDERED: CIPROFLOXACIN500 M2 PO (03:22)
[2016-07-18] MEDS ORDERED: FLOMAX0.4 M1 PO (03:23)
--- NOTE | 2016-07-18 04:06 | CT SCAN REPORT ---
EXAMINATION: CT ABDOMEN AND PELVIS WITHOUT CONTRAST CLINICAL INFORMATION: Severe right flank pain status post lithotripsy. COMPARISON: CT scan of abdomen and pelvis 07/12/2016. TECHNIQUE: Multidetector volumetric imaging was performed from the superior aspect of the liver through the pubic symphysis. Sagittal and coronal reformatted images were obtained on the technologist's workstation. DLP: 407.43 mGy-cm FINDINGS: LUNG BASES: Lung bases are clear. There is no pleural or pericardial effusion. LIVER, GALLBLADDER, AND BILIARY TREE: The unenhanced liver demonstrates homogeneous attenuation and there is no evidence of a discrete hepatic parenchymal mass. The gallbladder is normal. No abnormal intrahepatic or extrahepatic biliary ductal dilatation. PANCREAS: Unremarkable. SPLEEN: Unremarkable. ADRENAL GLANDS: Unremarkable. KIDNEYS AND URETERS: There is moderate to severe right hydroureteronephrosis related to an obstructive 5 mm calculus located within the distal right ureter at the ureterovesicular junction. The right kidney is asymmetrically enlarged and there is stranding within the perinephric fat. No nonobstructing calculi are visualized within the right or left kidney. There is no worrisome mass or calcification along the expected course of the normal left ureter. BLADDER: Unremarkable. GASTROINTESTINAL TRACT: The stomach and small bowel are normal. There is no free intraperitoneal air or fluid. The appendix is not definitively visualized. No worrisome inflammatory changes are visualized at the base of the cecum to suggest acute appendicitis. ABDOMINAL WALL: No significant hernia is appreciated. LYMPH NODES: No pathologically enlarged mesenteric or retroperitoneal lymph nodes. VASCULAR: The unenhanced abdominal aorta and inferior vena cava are unremarkable. PELVIC VISCERA: There is an anteverted uterus. No worrisome adnexal mass. OSSEOUS STRUCTURES: There are chronic changes of a decompressive L5 laminectomy and there is a spinal fusion construct comprised of transpedicular screws extending from L5 to S1. Hardware is grossly intact and there is no evidence of suggest loosening or infection. No worrisome lytic or blastic osseous lesion within the [id number] of this examination. IMPRESSION: There is moderate to severe right hydroureteronephrosis related to an obstructive 5 mm calculus within the distal right ureter at the ureterovesicular junction.
--- NOTE | 2016-07-18 04:23 | NUR ---
TO BE ADMITTED.
[2016-07-18] MEDS ORDERED: PERCOCET 5-3251 EACH PO (04:40)
--- NOTE | 2016-07-18 05:38 | NUR ---
PT ADMIT TO RM 216.
--- NOTE | 2016-07-18 06:10 | NUR ---
REPORT TO JW AWAITS SUPERVISIOR FOR PAPERWORK FOR 23 HR OBS.
--- NOTE | 2016-07-18 06:44 | NUR ---
NSG NOTE: PT ARRIVED TO FLOOR FROM ER. PT AWAKE, A/OX3, ON ROOM AIR, IV SITE INTACT, IVF INFUSING PER ORDER, PT C/O PAIN TO R FLANK/BACK 8-01/05. PT DENIES NAUSEA/VOMITING. VITALS OBTAINED AND STABLE. PT ORIENTED TO ROOM AND CALL WOOD WITHIN REACH. WILL MONITOR.
[2016-07-18 06:52] VITALS: BP 122/80
[2016-07-18 14:57] VITALS: BP 122/60
--- NOTE | 2016-07-18 16:28 | PN- Urology ---
Subjective Subjective: Patient seen and examined with Dr. Hill. Continues to have pain, but improved from early this morning. No N/V, F/C, CP/SOB. Tolerating regular diet. Voiding spontaneously Objective Vital Signs and I&Os Vital Signs Date Time Temp Pulse Resp B/P B/P Pulse O2 O2 Flow FiO2 Mean Ox Delivery Rate 07/18 1457 98.3 93 20 122/60 100 07/18 1127 70 116/82 07/18 0652 97.6 72 20 122/80 99 07/18 0434 80 18 136/78 100 Room Air 07/18 0344 80 16 133/75 99 Room Air 07/18 0006 98.1 101 18 133/80 99 Room Air Intake & Output 07/18 1600 07/18 0800 07/18 0000 07/17 1600 07/17 0800 07/17 0000 Intake Total 1620 Output Total 450 Balance 1170 Intake, IV 900 Intake, Oral 720 Output, Urine 450 Patient 162 lb Weight Physical Exam: Gen: AAox3 in NAD Cor: S1+S2+ Lungs: CTA isaias Abd: soft, NT, ND, +BS x4 Ext: no edema or calf tenderness to isaias lower extremities. Assessment/Plan Assessment/Plan A: HD #1 with right hydronephrosis/ distal UVJ stone s/p eswl, stent removed by Dr. Cody and ESWL performed. Pain improving. Plan: Continue to hydrate overnight. If pain subsides, d/c tomorrow. If not, will make NPO p midnight on Wednesday into Wednesday for possible stent by Dr. Cody. Core Measures/Miscellaneous Venous Thromboembolism VTE Risk Factors: Age > 40 VTE Contraindications: No Contraindications VTE Diagnosis: No Beta Mukesh Is Beta Mukesh a Home Med? No Antibiotics Is Patient on Antibiotics? No
--- NOTE | 2016-07-18 17:17 | History & Physical ---
See Addendum General Information and HPI MD Statement: I have seen and personally examined RONALD CHANEY and documented this H&P. The patient is a 46 year old F who presented with a patient stated chief complaint of []. Source of Information: patient Exam Limitations: no limitations History of Present Illness: Patient is a 46 year old female with a past medical history significant for nephrolithiasis. She underwent a right retrograde pyelogram and right stent placement on 07/14/16 for a right 6mm obstructing stone with associated hydronephrosis for renal colic. She did not tolerate the procedure well and her stent was eventually removed on 07/16/[address] Cody. She had lithotripsy done concomitantly. She presents to the ED today (one day later) with pain to the right flank and nausea/vomiting. She was evaluated by the ED, who discussed care with Dr. Hill who was covering for Dr. Cody, and the decision was made to admit the patient overnight for IV hydration and pain control. Allergies/Medications Allergies: Coded Allergies: morphine (RASH 07/13/16) Home Med list Ciprofloxacin HCl 500 MG TABLET 1 TAB PO BID INFECTION (Reported) Cyclobenzaprine HCl (Unknown Strength) TABLET (Unknown Dose) PO DAILY BACK PAIN (Reported) Ibuprofen 800 MG TABLET 1 TAB PO TID PAIN Meloxicam (Unknown Strength) TABLET (Unknown Dose) PO DAILY BACK PAIN ( Reported) Oxycodone HCl/Acetaminophen (Percocet 5-325 MG Tablet) 5 MG-325 MG TABLET 1 TAB PO TID PRN PAIN (Reported) Tamsulosin HCl (Flomax) 0.4 MG CAP.ER.24H 1 CAP PO DAILY URINE (Reported) Past History Travel History Traveled to [place] past 21 day No Medical History Blood Transfusion Hx: Yes Neurological: NONE EENT: NONE Cardiovascular: NONE Respiratory: NONE Gastrointestinal: NONE Hepatic: NONE Renal: nephrolithiasis Musculoskeletal: L5 FUSION Psychiatric: NONE Endocrine: NONE Blood Disorders: NONE Cancer(s): NONE PHLEBOTOMY TECHNOLOGIST/Reproductive: NONE Isolation History: Standard Surgical History Surgical History: s/p stent removal Past Family/Social History Psychosocial History Smoking Status: Never Smoked Review of Systems Review of Systems Constitutional: Denies: fever, malaise, weakness. Exam & Diagnostic Data Last 24 Hrs of Vital Signs/I&O Vital Signs Date Time Temp Pulse Resp B/P B/P Pulse O2 O2 Flow FiO2 Mean Ox Delivery Rate 07/18 1457 98.3 93 20 122/60 100 07/18 1127 70 116/82 07/18 0652 97.6 72 20 122/80 99 07/18 0434 80 18 136/78 100 Room Air 07/18 0344 80 16 133/75 99 Room Air 07/18 0006 98.1 101 18 133/80 99 Room Air Intake & Output 07/18 1600 07/18 0800 07/18 0000 Intake Total 1620 Output Total 450 Balance 1170 Intake, IV 900 Intake, Oral 720 Output, Urine 450 Patient 162 lb Weight Physical Exam General Appearance Alert, Oriented X3 Skin No Rashes Cardiovascular Regular Rate, Normal S1, Normal S2, No Murmurs Lungs Clear to Auscultation, Normal Air Movement Abdomen Normal Bowel Sounds, Soft, right cva tenderness Extremities No Cyanosis, No Edema Assessment/Plan Assessment: A: 46 year old female with nephrolithiasis s/p right ureteral stent placement for a 6mm obstructing right renal calculi with hydronephrosis now POD #1 s/p removal of stent and ESWL now with abdominal pain/CVA tenderness. Plan: Admit to Dr. Hill IVF hydration. No Abx. OOB and ambulate. Regular diet. As Ranked By This Provider Problem List: 1. Renal colic Core Measures/Miscellaneous Acute Coronary Syndrome ACS Diagnosis: No Cerebrovascular Accident CVA/TIA Diagnosis: No Congestive Heart Failure CHF Diagnosis: No Venous Thromboembolism VTE Risk Factors: Age > 40 [facility] prophylaxis d/t: No contraindications No VTE Pharm Prophylaxis d/t: No contraindications VTE Diagnosis: No VTE Type: NONE VTE Confirmed by (Test): NONE Severe Sepsis Severe Sepsis Present: No Septic Shock Septic Shock Present: No Miscellaneous Documentation Attending Case Discussed With: PING JEWELL,ANURADHA Zuñiga Primary Care Physician: PATIENT HAS NO PRIMARY CARE DR Patient sees these Specialists Dr. Cody Level of Patient Care: General Branch Rental Manager Review Statement Other Findings: I did not evaluate the patient upon admission (just HD #1) as no H&P was performed on admission.
--- NOTE | 2016-07-18 18:57 | PN- Urology ---
Subjective Subjective: fairly comfortable now occas colic but better with pain meds Review of Systems: no vomiting some nausea Objective Vital Signs and I&Os Vital Signs Date Time Temp Pulse Resp B/P B/P Pulse O2 O2 Flow FiO2 Mean Ox Delivery Rate 07/18 1457 98.3 93 20 122/60 100 07/18 1127 70 116/82 07/18 0652 97.6 72 20 122/80 99 07/18 0434 80 18 136/78 100 Room Air 07/18 0344 80 16 133/75 99 Room Air 07/18 0006 98.1 101 18 133/80 99 Room Air Intake & Output 07/18 1600 07/18 0800 07/18 0000 07/17 1600 07/17 0800 07/17 0000 Intake Total 1620 Output Total 450 Balance 1170 Intake, IV 900 Intake, Oral 720 Output, Urine 450 Patient 162 lb Weight Physical Exam: abd soft mild r cvat Assessment/Plan Assessment/Plan right uret stone ct was revieewed and stone still present had eswl and stent removal ny dr mitchell yesterday for 5 mm stone which is stil present cont pain meds flomax and hydration hopefully home in am Core Measures/Miscellaneous Seals Catheter Date In: 07/18/16 Still Needed? No Venous Thromboembolism VTE Risk Factors: Age > 40 VTE Contraindications: No Contraindications VTE Diagnosis: No VTE Type: NONE VTE Confirmed by (Test): NONE Beta Mukesh Is Beta Mukesh a Home Med? No Antibiotics Is Patient on Antibiotics? No Attending MD Review Statement Attending Statement Attending MD Statement: examined this patient, discuss w/resident/PA/RUG CLIPPER
--- NOTE | 2016-07-18 19:18 | NUR ---
ALERT AND ORIENTED X 3. VITAL SIGNS STABLE. DENIES CHEST PAIN. + PULSES ON ROOM AIR. STEADY GAIT. NO DISCOMFORT NOTED AT THIS TIME. URINE BEING FILTERED. WILL CONTINUE TO MONITOR
[2016-07-18 23:19] VITALS: BP 122/75
--- NOTE | 2016-07-19 05:47 | Patient Discharge Instructions ---
Discharge Instructions General Discharge Information You were seen/treated for: stent pain You had these procedures: stent removal Special Instructions: Please call Dr. Cody's office for a follow up appointment at your earliest convenience Diet Continue normal diet: Yes Activity Full Activity/No Limits: Yes Acute Coronary Syndrome Inclusion Criteria At DC or during hospital stay patient has or had the following: ACS DIAGNOSIS No Discharge Core Measures Meds if any: Prescribed or Continued at Discharge MARIA FERNANDA/ARB if EF <40% No Aspirin No Beta-Mukesh No Statin No Meds if any: NOT Prescribed or Continued at Discharge Congestive Heart Failure Inclusion Criteria At DC or during hospital stay patient has or had the following: CHF DIAGNOSIS No Discharge Core Measures Meds if any: Prescribed or Continued at Discharge Meds if any: NOT Prescribed or Continued at Discharge Cerebrovascular accident Inclusion Criteria At DC or during hospital stay patient has or had the following: CVA/TIA Diagnosis No Discharge Core Measures Meds if any: Prescribed or Continued at Discharge Meds if any: NOT Prescribed or Continued at Discharge Venous thromboembolism Inclusion Criteria VTE Diagnosis No VTE Type NONE VTE Confirmed by (Test) NONE Discharge Core Measures - Per Current guidelines, there needs to be overlap - treatment for the first 5 days of Warfarin therapy. - If discharged on Warfarin prior to 5 days of - overlap therapy, the patient will need to be - assessed for post discharge needs including - *Post discharge parental anticoagulation - *Warfarin and/or parental anticoagulation education - *Follow up date to check INR post discharge At least 5 days overlap therapy as Inpatient No Meds if any: Prescribed or Continued at Discharge Note: Overlap Therapy is Warfarin and Anticoagulant Meds if any: NOT Prescribed or Continued at Discharge
--- NOTE | 2016-07-19 05:50 | Surgical Discharge Summary ---
See Addendum Visit Information Visit Dates Admission Date: 07/18/16 Discharge Date: 07/20/16 History of Present Illness Chief Complaint: flank pain Medical History Blood Transfusion Hx: Yes Neurological: NONE EENT: NONE Cardiovascular: NONE Respiratory: NONE Gastrointestinal: NONE Hepatic: NONE Renal: nephrolithiasis Musculoskeletal: L5 FUSION Psychiatric: NONE Endocrine: NONE Blood Disorders: NONE Cancer(s): NONE HOSPITAL PRODUCT SPECIALIST/Reproductive: NONE History of MRSA: No History of VRE: No History of CDIFF: No Isolation History: Standard Surgical History Pertinent Surgical History: s/p stent removal Psychosocial History What is Your Primary Language? Upper Sorbian Review of Systems: see HPI Hospital Course Course Attending Physician: ANURADHA FENG MD Primary Care Physician: PATIENT HAS NO PRIMARY CARE DR Hospital Course: Mrs. Gardner is a 46 year old female with a past medical history significant for chronic back pain s/p lumbar fusion and nephrolithiasis. She underwent a right retrograde pyelogram and right stent placement on 07/14/16 for a right 6mm obstructing stone with associated hydronephrosis for renal colic. She did not tolerate the procedure well and her stent was eventually removed on 07/16/[address] Cody. She had lithotripsy done concomitantly. She was admitted on for abdominal and flank pain on the right side. After IVF and pain medication, the pain eventually subsided. She was stable for discharge on hospital day #2. She will follow up with Dr. Cody as an outpatient. Allergies: Coded Allergies: morphine (RASH 07/13/16) Disposition Summary Disposition Principal Diagnosis: nephrolithiasis Additional Diagnosis: same Discharge Disposition: home or self care Discharge Instructions General Discharge Information Code Status: Full Code Patient's Diet: regular Patient's Activity: as tolerated Follow-Up Instructions/Appts: Dr. Cody- call for appointment Medications at Discharge Discharge Medications: Stop taking the following medications: Ciprofloxacin HCl (Ciprofloxacin HCl) 500 MG TABLET ORAL TWICE DAILY Qty = 6 Tamsulosin HCl (Flomax) 0.4 MG CAP.ER.24H ORAL DAILY Qty = 7 Continue taking these medications: Meloxicam (Meloxicam) (Unknown Strength) TABLET Unknown Dose ORAL DAILY Comments: NOT GIVEN IN HOSPITAL Cyclobenzaprine HCl (Cyclobenzaprine HCl) (Unknown Strength) TABLET Unknown Dose ORAL DAILY Comments: NOT GIVEN IN HOSPITAL Ibuprofen (Ibuprofen) 800 MG TABLET 1 Tablet ORAL THREE TIMES DAILY Qty = 30 Comments: NOT GIVEN IN HOSPITAL Oxycodone HCl/Acetaminophen (Percocet 5-325 MG Tablet) 5 MG-325 MG TABLET 1 Tablet ORAL THREE TIMES DAILY as needed for PAIN Qty = 15 Comments: NOT GIVEN IN HOSPITAL
[2016-07-19 07:46] VITALS: BP 144/100
[2016-07-19 09:05] LABS: ABSOLUTE BASOPHIL COUNT 0 /CUMM (0.0-0.2); ABSOLUTE EOSINOPHIL COUNT 0.4 /CUMM (0.0-0.7); ABSOLUTE GRANULOCYTE CT 5.2 /CUMM (1.4-6.5); ABSOLUTE LYMPH COUNT 2.6 /CUMM (1.2-3.4); ABSOLUTE MONOCYTE COUNT 0.6 /CUMM (0.10-0.60); BASOPHIL % 0.5 % (0.0-2.0); EOSINOPHIL % 4.7 % (0-5); GRANULOCYTE % 58.8 % (42.2-75.2); HEMATOCRIT 37.1 % (37-47); MEAN CORPUSCULAR HGB 27.2 PG (27.0-31.0); MEAN CORPUSCULAR VOLUME 82.5 FL (81.0-99.0); MEAN PLATELET VOLUME 9.3 FL (7.4-10.4); PLATELET COUNT 242 /CUMM (130-400); RBC DISTRIBUTION WIDTH 13.8 % (11.5-14.5); RED BLOOD CELL CT 4.49 /CUMM (4.20-5.40); WHITE BLOOD CELL COUNT 8.8 /CUMM (4.8-10.8)
--- NOTE | 2016-07-19 09:35 | PN- Urology ---
Subjective Subjective: Pt had a bit of a difficult night last night. She continues to admit to [facility] abdominal pain radiating to the back. She has been somewhat nauseous throughout night, and has vomited 2 earlier this morning. She has also had at least 3 episodes of diarrhea. She states that she is unable to tolerate food this morning. Objective Vital Signs and I&Os Vital Signs Date Time Temp Pulse Resp B/P B/P Pulse O2 O2 Flow FiO2 Mean Ox Delivery Rate 07/19 0746 98.1 70 20 144/100 99 Room Air 07/18 2319 98.5 72 18 122/75 98 Room Air 07/18 1457 98.3 93 20 122/60 100 07/18 1127 70 116/82 Intake & Output 07/19 1600 07/19 0800 07/19 0000 07/18 1600 07/18 0800 07/18 0000 Intake Total 6542 491 5378 Output Total 500 450 Balance 1450 0 1170 Intake, IV 1210 900 Intake, Oral 240 500 720 Number 0 Bowel Movements Output, Urine 500 450 Patient 162 lb Weight Physical Exam: Gen.: Patient is awake and alert. No acute distress, but she does appear a little bit uncomfortable. Cardiac: Regular Pulmonary: Clear bilaterally Abdomen: Soft and nondistended, but there is tenderness to palpation in the right lower quadrant. Positive CVA tenderness on the right side. No rebound or guarding. Hypoactive bowel sounds are heard. Extremities: No significant edema or calf tenderness. Results Last 48 Hours of Labs: Laboratory Tests 07/19 07/18 0700 0220 Chemistry Sodium (137 - 145 mmol/L) 140 Potassium (3.5 - 5.1 mmol/L) 4.3 Chloride (98 - 107 mmol/L) 107 Carbon Dioxide (22 - 30 mmol/L) 23 Anion Gap (5 - 16) 10 BUN (7 - 17 mg/dL) 17 Creatinine (0.5 - 1.0 mg/dL) 1.4 H Estimated GFR (>60 ml/min) 40 L BUN/Creatinine Ratio (7 - 25 %) 12.1 Phosphorus (2.5 - 4.5 mg/dL) 3.0 Magnesium (1.6 - 2.3 mg/dL) 1.9 Hematology CBC w Diff Pending WBC Pending RBC Pending Hgb Pending Hct Pending MCV Pending MCH Pending RDW Pending Plt Count Pending MPV Pending PUBS MCHC Pending Urines Urinalysis LIGHT H Urine Color (YEL,AMB,STR) STRAW Urine Clarity (CLEAR) CLEAR Urine pH (5.0 - 8.0) 8.0 Ur Specific [place] (1.001 - 1.035) 1.015 Urine Protein (NEG,<30 MG/DL) NEG Urine Ketones (NEG) NEG Urine Nitrite (NEG) NEG Urine Bilirubin (NEG) NEG Urine Urobilinogen (0.1 - 1.0 EU/dl) 0.2 Ur Leukocyte Esterase (NEG) NEG Ur Microscopic SEDIMENT EXAMINED Urine RBC (0 - 5 /HPF) 15-25 H Urine WBC (0 - 2 /HPF) 1-3 H Ur Epithelial Cells (NONE,FEW) FEW Urine Bacteria (NEG/NONE) RARE H Urine Hemoglobin (NEG) LARGE H Urine Glucose (N MG/DL) NEG 07/18 0050 Chemistry Sodium (137 - 145 mmol/L) 138 Potassium (3.5 - 5.1 mmol/L) 3.9 Chloride (98 - 107 mmol/L) 100 Carbon Dioxide (22 - 30 mmol/L) 26 Anion Gap (5 - 16) 13 BUN (7 - 17 mg/dL) 22 H Creatinine (0.5 - 1.0 mg/dL) 1.3 H Estimated GFR (>60 ml/min) 44 L BUN/Creatinine Ratio (7 - 25 %) 16.9 Glucose (65 - 99 mg/dL) 104 H Calcium (8.4 - 10.2 mg/dL) 9.0 Total Bilirubin (0.2 - 1.3 mg/dL) 0.8 AST (14 - 36 U/L) 18 ALT (9 - 52 U/L) 23 Alkaline Phosphatase (<127 U/L) 78 Total Protein (6.3 - 8.2 g/dL) 7.2 Albumin (3.5 - 5.0 g/dL) 4.2 Globulin (1.9 - 4.2 gm/dL) 3.0 Albumin/Globulin Ratio (1.1 - 2.2 %) 1.4 Hematology CBC w Diff MAN DIFF ORDERED WBC (4.8 - 10.8 /CUMM) 16.1 H RBC (4.20 - 5.40 /CUMM) 4.87 Hgb (12.0 - 16.0 G/DL) 13.5 Hct (37 - 47 %) 39.4 MCV (81.0 - 99.0 FL) 81.0 MCH (27.0 - 31.0 PG) 27.8 RDW (11.5 - 14.5 %) 13.0 Plt Count (130 - 400 /CUMM) 268 MPV (7.4 - 10.4 FL) 8.4 Gran % (42.2 - 75.2 %) 83.0 H Lymphocytes % (20.5 - 51.1 %) 9.9 L Monocytes % (1.7 - 9.3 %) 5.9 Eosinophils % (0 - 5 %) 1.0 Basophils % (0.0 - 2.0 %) 0.2 Absolute Granulocytes (1.4 - 6.5 /CUMM) 13.4 H Segmented Neutrophils (42.2 - 75.2 %) 88 H Absolute Lymphocytes (1.2 - 3.4 /CUMM) 1.6 Lymphocytes (20.5 - 51.1 %) 8 L Monocytes (1.7 - 9.3 %) 4 Absolute Monocytes (0.10 - 0.60 /CUMM) 0.9 H Absolute Eosinophils (0.0 - 0.7 /CUMM) 0.2 Absolute Basophils (0.0 - 0.2 /CUMM) 0 Platelet Estimate (ADEQUATE) ADEQUATE Normocytic RBCs VERIFIED Normochromic RBCs VERIFIED PUBS MCHC (33.0 - 37.0 G/DL) 34.3 Assessment/Plan Assessment/Plan Patient is a 46-year-old female who is now hospital day #2 status post ESWL with stent placement on 07/16/[address] Cody in [place]. The stent was subsequently removed due to intolerance, lithotripsy was attempted, and she returned to [facility] with nausea and vomiting. CT scan performed in the ED yesterday morning revealed evidence of a retained stone. Patient was admitted for IV hydration, pain control, and antiemetics. She was starting to improve but is now nauseated again. Plan: -Zofran as needed for nausea. -Patient is not tolerating food right now, but can try to eat later if she desires. -She is not on any antibiotics. She remains afebrile and white blood cell count from today is pending. -Patient wants to be discharged today, but she understands that her symptoms are not completely controlled, so we will hold off for now. -Continue pain control as needed with Toradol or Percocet when tolerating food. -Continue Flomax. -Subcutaneous heparin and Alps for DVT prophylaxis. -Prilosec for GI prophylaxis. -Will discuss with attending. Core Measures/Miscellaneous Seals Catheter Date In: 07/18/16 Venous Thromboembolism VTE Risk Factors: Age > 40 VTE Contraindications: No Contraindications VTE Diagnosis: No VTE Type: NONE VTE Confirmed by (Test): NONE Beta Mukesh Is Beta Mukesh a Home Med? No Antibiotics Is Patient on Antibiotics? No
[2016-07-19 14:36] VITALS: BP 120/90
--- NOTE | 2016-07-19 17:40 | NUR ---
PT CONTINUED TO COMPLAIN OF NAUSEA, REGLAN GIVEN, 10 MINUTES LATER PT VOMITTED, TORADOL GIVEN FOR PAIN TO RT FLANK OF 710. 10 MINUTES LATER PT STATES SHE'S "HAVING AN AXIETY ATTACK". SHE WAS FIDGETY, SITTING WITH HER HEAD IN HER HANDS. SURG NORY LR CALLED AND MADE AWARE. ATIVAN ORDERED. PT WAS BROUGHT DOWNSTAIRS FOR XRAY. AWAITING RETURN TO FLOOR.
--- NOTE | 2016-07-19 17:59 | Admission Core Measures ---
Admission Lab Results I reviewed the following labs: Laboratory Tests 07/19 0700 Chemistry Sodium (137 - 145 mmol/L) 140 Potassium (3.5 - 5.1 mmol/L) 4.3 Chloride (98 - 107 mmol/L) 107 Carbon Dioxide (22 - 30 mmol/L) 23 Anion Gap (5 - 16) 10 BUN (7 - 17 mg/dL) 17 Creatinine (0.5 - 1.0 mg/dL) 1.4 H Estimated GFR (>60 ml/min) 40 L BUN/Creatinine Ratio (7 - 25 %) 12.1 Phosphorus (2.5 - 4.5 mg/dL) 3.0 Magnesium (1.6 - 2.3 mg/dL) 1.9 Hematology CBC w Diff NO MAN DIFF REQ WBC (4.8 - 10.8 /CUMM) 8.8 RBC (4.20 - 5.40 /CUMM) 4.49 Hgb (12.0 - 16.0 G/DL) 12.2 Hct (37 - 47 %) 37.1 MCV (81.0 - 99.0 FL) 82.5 MCH (27.0 - 31.0 PG) 27.2 RDW (11.5 - 14.5 %) 13.8 Plt Count (130 - 400 /CUMM) 242 MPV (7.4 - 10.4 FL) 9.3 Gran % (42.2 - 75.2 %) 58.8 Lymphocytes % (20.5 - 51.1 %) 29.3 Monocytes % (1.7 - 9.3 %) 6.7 Eosinophils % (0 - 5 %) 4.7 Basophils % (0.0 - 2.0 %) 0.5 Absolute Granulocytes (1.4 - 6.5 /CUMM) 5.2 Absolute Lymphocytes (1.2 - 3.4 /CUMM) 2.6 Absolute Monocytes (0.10 - 0.60 /CUMM) 0.6 Absolute Eosinophils (0.0 - 0.7 /CUMM) 0.4 Absolute Basophils (0.0 - 0.2 /CUMM) 0 PUBS MCHC (33.0 - 37.0 G/DL) 33.0 Admission Meds I reviewed the following Meds: Current Medications Sig/Osvaldo Start time Last Medication Dose Stop Time Status Admin Acetaminophen 650 MG Q4-6 PRN PRN 07/18 0445 AC (Tylenol) Calcium Carbonate 1,000 MG TIDPRN PRN 07/18 1930 AC 07/19 (TUMS) 0557 Diphenhydramine HCl 50 MG Q4-6 PRN PRN 07/18 0445 AC (Benadryl) Heparin Sodium 5,000 UNIT Q8 07/18 1400 AC 07/19 (Porcine) 0557 Hydromorphone HCl 1 MG Q2-3 HRS NEEDED.. 07/18 0445 AC (Dilaudid) Ketorolac 15 MG Q8P PRN 07/18 0445 AC 07/19 Tromethamine 1717 (Toradol) Omeprazole 20 MG DAILY AC 07/19 0700 AC 07/19 (Prilosec) 0558 Ondansetron HCl 4 MG Q6P PRN 07/19 1700 AC (Zofran) Oxycodone/ 1 TAB Q4-6 PRN PRN 07/18 0445 AC Acetaminophen (Percocet) Oxycodone/ 2 TAB Q4-6 PRN PRN 07/18 044 AC Acetaminophen (Percocet) Sodium Chloride 1,000 ML Q6H 07/18 0445 AC 07/19 (Normal Saline 0.9%) 1717 Tamsulosin HCl 0.4 MG DAILY 07/19 1000 AC 07/19 (Flomax) 1245 Acute Coronary Syndrome Inclusion Criteria ACS Diagnosis No Inpatient Core Measures LDL Reminder: If No, please order W/I first 24hr of stay Congestive Heart Failure Inclusion Criteria CHF Diagnosis No Cerebrovascular accident Inclusion Criteria CVA/TIA Diagnosis No Inpatient Core Measures Bedside Swallow Eval Reminder: If BSE failed, place ST order Antithrombotic Reminder: Order Antithrombotic Medication by end of day 2 Antithrombotic Reminder: Document Reason Antithrombotic Not ordered by end of day 2 AFIB/Flutter Reminder: If Present, add to problem list AFIB/Flutter Reminder: Order Anticoag Medication for pts with AFIB/Flutter Atherosclerosis Reminder: If Present, add to problem list LDL Reminder: If No, please order W/I first 24hr of stay PT Order Reminder: If No, please order Venous thromboembolism Inpatient Core Measures VTE Risk Factors: Age > 40 No Mech VTE prophylaxis d/t No contraindications No VTE Pharm Prophylaxis d/t No contraindications Inclusion Criteria - Per Current guidelines, there needs to be overlap - treatment for the first 5 days of Warfarin therapy. - Parenteral Anticoagulation (IV or SC) needs to be - given along with Warfarin therapy. VTE Diagnosis No VTE Type NONE VTE Confirmed by (Test) NONE Problem List As ranked by this Provider includes Assessment & Plan 1. Kidney stone on right side 2. Nausea and vomiting HOME MEDS Home Med List Ciprofloxacin HCl 500 MG TABLET 1 TAB PO BID INFECTION (Reported) Cyclobenzaprine HCl (Unknown Strength) TABLET (Unknown Dose) PO DAILY BACK PAIN (Reported) Ibuprofen 800 MG TABLET 1 TAB PO TID PAIN Meloxicam (Unknown Strength) TABLET (Unknown Dose) PO DAILY BACK PAIN ( Reported) Oxycodone HCl/Acetaminophen (Percocet 5-325 MG Tablet) 5 MG-325 MG TABLET 1 TAB PO TID PRN PAIN (Reported) Tamsulosin HCl (Flomax) 0.4 MG CAP.ER.24H 1 CAP PO DAILY URINE (Reported)
--- NOTE | 2016-07-19 18:14 | RADIOLOGY REPORT ---
EXAMINATION: XR KIDNEYS, URETER, BLADDER CLINICAL INDICATION: Persistent nausea, vomiting, nephrolithiasis COMPARISON: CT abdomen and pelvis 07/18/2016 TECHNIQUE: AP view of the abdomen, supine, 2 images. FINDINGS: Rounded density within the right lateral aspect of the pelvis is visualized measuring approximately 0.5 cm. This likely corresponds to the obstructing stone identified just immediately proximal to the ureterovesicular junction. An adjacent phlebolith is present. The bowel gas pattern is nonspecific. No gas-filled dilated loops of bowel. No large volume of free air. Lower lumbar fusion hardware is partially imaged. Visualized osseous structures appear unremarkable. IMPRESSION: Persistent stone at the right UVJ. No interval change compared to CT.
[2016-07-19 22:03] VITALS: BP 118/68
[2016-07-20 06:29] VITALS: BP 126/70
--- NOTE | 2016-07-20 07:48 | PN- Urology ---
Subjective Subjective: Patient reporting one overnight episode of nausea that was relieved with reglan. Otherwise she states that she was able to sleep. She states that presently her pain is under control. She has been voiding without difficulty. She denies chest pain, shortness of breath and difficulty breathing. She denies pain to upper and lower extremities. Objective Vital Signs and I&Os Vital Signs Date Time Temp Pulse Resp B/P B/P Pulse O2 O2 Flow FiO2 Mean Ox Delivery Rate 07/20 0629 98.1 80 20 126/70 97 07/19 2203 98.2 91 20 118/68 98 Room Air 07/19 1436 98.1 77 18 120/90 100 Room Air 07/19 1245 70 144/100 07/19 0746 98.1 70 20 144/100 99 Room Air Intake & Output 07/20 0800 07/20 0000 07/19 1600 07/19 0800 07/19 0000 07/18 1600 Intake Total 2560 795 3132 9493 557 3440 Output Total 500 450 Balance 2521 303 6727 1450 0 1170 Intake, IV 5216 254 7769 1210 900 Intake, Oral 0 600 240 500 720 Number 2 0 Bowel Movements Output, Urine 500 450 Physical Exam: General: Alert and oriented x3, no acute distress Cardiac: RRR, s1s2 Pulm: C T A bilaterally Abdomen: Soft, non-distended. CVA tenderness noted to right side Extremities: Moves all extremities, distal sensations intact. Skin warm and well perfused. No peripheral edema appreciated. Bilateral calves soft and non- tender. Assessment/Plan Assessment/Plan This is a 46 year old in observation, now hospital day 3 for right sided cva, retained stone, s/p ESWL. -F/U am labs, creatinine elevated to 1.4 yesterday -NPO for now -Continue IV fluids, IV reglan for n/v -Possible OR today for right ureteral stent placement -Will d/w Dr. Cody Core Measures/Miscellaneous Seals Catheter Date In: 07/18/16 Venous Thromboembolism VTE Risk Factors: Age > 40 VTE Contraindications: No Contraindications VTE Diagnosis: No VTE Type: NONE VTE Confirmed by (Test): NONE Beta Mukesh Is Beta Mukesh a Home Med? No Antibiotics Is Patient on Antibiotics? No
[2016-07-20 08:38] LABS: ABSOLUTE BASOPHIL COUNT 0 /CUMM (0.0-0.2); ABSOLUTE EOSINOPHIL COUNT 0.2 /CUMM (0.0-0.7); ABSOLUTE GRANULOCYTE CT 6.4 /CUMM (1.4-6.5); ABSOLUTE LYMPH COUNT 2.6 /CUMM (1.2-3.4); ABSOLUTE MONOCYTE COUNT 0.5 /CUMM (0.10-0.60); BASOPHIL % 0.4 % (0.0-2.0); EOSINOPHIL % 2.5 % (0-5); GRANULOCYTE % 65.6 % (42.2-75.2); HEMATOCRIT 33.3 % (37-47); MEAN CORPUSCULAR HGB 27.8 PG (27.0-31.0); MEAN CORPUSCULAR HGB CONC 34.3 G/DL (33.0-37.0); MEAN CORPUSCULAR VOLUME 81.2 FL (81.0-99.0); MEAN PLATELET VOLUME 8.2 FL (7.4-10.4); PLATELET COUNT 257 /CUMM (130-400); RBC DISTRIBUTION WIDTH 13.3 % (11.5-14.5); WHITE BLOOD CELL COUNT 9.7 /CUMM (4.8-10.8)
--- NOTE | 2016-07-20 11:57 | NUR ---
NURSING NOTE: PATIENT LEFT FLOOR VIA STRETCHER WITH DISTRIBUTION FOR OR. PATIENT SCRUBBED, VOIDED, VSS, ALL JEWELRY AND UNDERGARMENTS REMOVED, GLASSES LEFT AT BEDSIDE. ALL PAPERWORK PRINTED AND PLACED IN CHART, STAMPER IN CHART. WILL AWAIT RETURN FROM OR.
[2016-07-20 14:57] VITALS: BP 116/64
--- NOTE | 2016-07-20 15:20 | NUR ---
NURSING NOTE: PATIETN RETURNED TO FLOOR VIA STRETCHER WITH DISTRIBUTION FROM OR. PATIENT A/OX3, DENIES PAIN/NAUSEA. TOLERATING PO INTAKE. WILL CONTINUE TO MONITOR.
--- NOTE | 2016-07-20 15:39 | RADIOLOGY REPORT ---
EXAMINATION: Right-sided cystogram with lithotripsy and stent placement. C-arm imaging CLINICAL INDICATION: Right-sided ureterography with lithotripsy and stent placement. Dr. Cody COMPARISON: CT scan abdomen pelvis 07/12/2016, 07/18/2016 plain film abdomen 07/19/2016 TECHNIQUE: C-arm imaging. Dose. 0.280 mGym2 Images. 3 FINDINGS: Image #1: Image over the right kidney. 1 first image there is faint contrast in dilated right collecting system. Guidewire looped in the right renal collecting system. Image #2: Image over the right kidney and mid abdomen. The previously seen guidewire has been removed. Contrast present within dilated right renal pelvis calyces and a dilated proximal right ureter. Image #3: Image over the right kidney and mid abdomen. Double-J stent visualized. The proximal portion of the catheter visualized within the distal right renal pelvis at the ureterovesical junction. Orthopedic hardware partially visualized at lower lumbar spine IMPRESSION: Placement of right ureteral stent in right renal collecting system.
--- NOTE | 2016-07-23 14:17 | Operative Report ---
Operative/Inv Procedure Report Surgery Date: 07/20/16 Name of Procedure: Cystoscopy. Right rigid ureteroscopy with YAG laser lithotripsy of obstructing ureter stone. Right retrograde pyelogram. Fluoroscopy. Right stent insertion. Pre-Operative Diagnosis: Steinstrasse Post-Operative Diagnosis: Small ureteral stones compacted at the level of the distal ureter creating severe obstruction. Estimated Blood Loss: scant Surgeon/Awnings Mechanic: MD SANDEE OLSON-UROLOGY Anesthesia: laryngeal mask airway Specimens: Right ureteral stones. Condition: Improved, pain free Operative/Procedure Note Note: The patient was taken to the operating room and placed on the OR table in supine position. With the patient awake, timeout was performed in order to confirm; correct patient, correct procedure, as well as correct laterality, and other pertinent barbara-operative information. After adequate anesthesia and antibiotics , the patient was then placed lithotomy stirrups, draped and prepped in the usual surgical fashion. A 22 Kitt[place] cystoscope sheath with 30 angle lens was inserted into the bladder without difficulty. Upon entering the bladder, the bladder was noted to be free of tumor free of stone. Both orifices were in their orthotopic position. The right ureter orifice was intubated with an 5 Kittitian tiger-tail catheter, and a retrograde pyelogram with fluoroscopy was performed. An 8 mm right distal ureter filling defectS c/w Steinstrasse O's was visualized, with significant hydronephrosis. The tiger-tail catheter was removed, followed by insertion of a 0.035 Glidewire, which was advanced into the right renal pelvis without difficulty. Correct placement of the wire was confirmed on fluoroscopy. Leaving the Glidewire in place, the cystoscope was removed. Using a rigid Micro-6 ureteroscope, the bladder was then re-entered under direct visualization. The rigth ureter orifice was clearly visible, and wide open. The ureteroscope was ealily advanced/inserted into the open ureter under direct visualization. The ureteroscope was advanced easily and gently into the proximal ureter, and the large ureteral stone fragements were visualized. Under direct visualization the 400 g holmium YAG laser fiber was inserted through the ureteroscope. With the laser fiber in direct contact with the stones, laser lithotripsy was performed in order to pulverize the stone into multiple tiny fragments. The fragments were all flushed out and sent to pathology for analysis. At this point, the ureteroscope was then gently advanced into the right renal pelvis without difficulty. No other stones, nor any tumor was visualized in the renal pelvis. The entire length of the ureter was aslo visualize carefully on the way out with the ureteroscope, and the same findings of no stones or tumor was confirmed. The 22 [place] cystoscope sheath with a 30 angle lens was then reinserted into the bladder, with the Glidewire back loaded into the scope. A 6 x 22 Bard Opti- Lay ureteral stent was inserted over the Glidewire. With the proximal coil advanced into the right renal pelvis, confirmed on fluoroscopy, and the distal coil seen in the bladder, cystoscopically, the Glidewire was removed and the stent remained in proper place. The bladder was then drained, and the cystoscope was removed. The patient tolerated the procedure well was then taken to the recovery room in satisfactory condition. The patient is to follow up in 1-2 weeks for stent removal. Discharge Disposition: PACU CC: SANDEE OLSON MD
== END 2016-07-20 15:35 ==
LOC: ERH 23:17 → 2NB 07-18 04:32 → ERHI 07-18 04:32 → 2NB 07-18 04:32 → ENRESERV 07-18 05:33 → 2NB 07-18 06:28 → ENPENDDIS 07-20 13:31 → 2NB 07-20 15:35
PROVIDERS: Emergency Medicine; Nurse Practitioner; Physician Assistant; ADMIT Urology
DX: N20.1 Calculus of ureter (principal); N99.89 Other postprocedural complications and disorders of genitourinary system
CPT/HCPCS: 36415; 74000; 74176; 81001; 82355; 82436; 96372; 96374; 96375; 96376; C2617; G0378; J0131; J0696; J1200; J1644; J1885; J2060; J2405; J2765; J3101